=== PATIENT | female | born 1980 | race Caucasian/White ===

== ENCOUNTER → 2021-06-18 | Outpatient (CLI) | payer OTHER ==
--- NOTE | 2021-06-18 16:25 | DIREP ---
PROCEDURE:CHEST 2 VIEWS COMPARISON:None. INDICATIONS:R06.02 SHORTNESS OF BREATH FINDINGS: LUNGS/PLEURA:No significant pulmonary parenchymal abnormalities. No effusions. No pneumothorax VASCULATURE:Normal. Unremarkable pulmonary vasculature. CARDIAC:Presumed prominent fat pad along the right heart border, scar along the left side. MEDIASTINUM:Normal. No visible mass or adenopathy. BONES:Normal. No fracture or visible bony lesion. OTHER:Negative. CONCLUSION:Acute findings are not suspected. Regions of what likely represent epicardial fat pad, and scar along the left lung base. Dictated by: Mark Gutierrez MD on 06/18/2021 at 04:23 PM
== END | disposition home or self-care (01) ==
LOC: RAD 16:00
PROVIDERS: ATTEND Nurse Practitioner Family
DX: R06.02 Shortness of breath (principal)
CPT/HCPCS: 71046

== ENCOUNTER → 2021-07-20 | Outpatient (CLI) | payer OTHER ==
--- NOTE | 2021-07-20 09:51 | DIREP ---
PROCEDURE:MRI - BRAIN WITH AND WITHOUT CONTRAST COMPARISON:None. INDICATIONS:G35 MS TECHNIQUE:A variety of imaging planes and parameters were utilized for visualization of suspected pathology in the brain. Images were performed without and with gadolinium contrast.. FINDINGS: CSF SPACES:Ventricles, cisterns, and sulci are appropriate for age. No hydrocephalus, subarachnoid hemorrhage, or mass. CEREBRUM:No edema, hemorrhage, mass, acute infarction, or inappropriate atrophy. CEREBELLUM:No edema, hemorrhage, mass, acute infarction, or inappropriate atrophy. BRAINSTEM:No edema, hemorrhage, mass, acute infarction, or inappropriate atrophy. SKULL:No mass or other significant visible lesion. SINUSES:Limited views demonstrate no significant mucosal thickening or fluid. OTHER:No abnormal postcontrast enhancement.. CONCLUSION:MRI brain within normal limits for age. Dictated by: Scott Aggarwal M.D. on 07/20/2021 at 09:39 AM
== END | disposition home or self-care (01) ==
LOC: RAD 08:02
PROVIDERS: ATTEND Nurse Practitioner Family
DX: G35 Multiple sclerosis (principal)
CPT/HCPCS: 70553; A9579